=== PATIENT | female | born 1970 | race African-American/Black ===

== ENCOUNTER 2016-04-06 17:32 | Emergency (ER) | payer OTHER ==
[~2016-04-06] VITALS: Ht 167.6 cm; Wt 79.3 kg
[2016-04-06 17:44] VITALS: BP 130/80
[2016-04-07] MEDS ORDERED: DAILY VITE1 EAC1 PO (08:31)
== END 2016-04-06 20:25 | disposition left against medical advice (07) ==
LOC: EME 17:32
DX: R10.9 Unspecified abdominal pain (principal); Z53.21 Procedure and treatment not carried out due to patient leaving prior to being seen by health care provider
CPT/HCPCS: 80053; 81003; 84702; 85027

== ENCOUNTER 2016-04-07 01:40 | Inpatient (IN) | payer OTHER ==
[~2016-04-07] VITALS: Ht 167.6 cm; Wt 79.0 kg
[2016-04-07 02:26] LABS: HEMATOCRIT 28.9 % (36.0-46.0); MCH 27.5 PG (29.0-34.0); MCHC 32.9 G/DL (30.0-36.0); MCV 83.8 FL (83-99); MEAN PLAT.VOLUME 10.3 uM^3 (9.5-12.4); PLATELET COUNT 367 K/uL (156-360); RED BLOOD COUNT 3.45 M/uL (3.80-5.20); WHITE BLOOD COUNT 26.6 K/uL (4.1-10.2)
[2016-04-07 02:36] LABS: CHLORIDE 102 mEq/L (99-109); SODIUM 135 mEq/L (136-147)
[2016-04-07 02:38] LABS: GLUCOSE 89 mg/dL (70-99)
[2016-04-07 02:39] LABS: ANION GAP 11 MEQ/L (2-14)
[2016-04-07 02:40] LABS: TOTAL BILIRUBIN 1.7 mg/dL (0.0-1.0)
[2016-04-07 02:42] LABS: ALKALINE PHOSPHATASE 62 IU/L (3-129); GFR ESTIMATE (CALCULATED) > 59 mL/min/
[2016-04-07 02:43] LABS: UREA NITROGEN (BUN) 8 mg/dL (9-23)
[2016-04-07 02:44] LABS: DIRECT BILIRUBIN 0.7 mg/dL (0.0-0.3)
[2016-04-07 02:45] LABS: LIPASE 10 U/L (1.0-51.0)
[2016-04-07 02:52] LABS: QUANTITATIVE HCG 4.5 MIU/ML
[2016-04-07] MEDS ORDERED: DAILY VITE1 EAC1 PO (08:31)
[2016-04-07 09:42] LABS: ADD MIUA? YES; BILIRUBIN NEGATIVE; BLOOD TRACE; COLOR DK YELLOW ((YELLOW)); GLUCOSE (STRIP) NEGATIVE; KETONES NEGATIVE; LEUKOCYTES NEGATIVE; NITRITE NEGATIVE; PH, URINE 5.5 (5-8); PROTEIN (STRIP) TRACE; UROBILINOGEN 0.2 MG/DL (0.2-1.0)
[2016-04-07 10:00] LABS: SPECIFIC GRAVITY 1.078 (1.000-1.030)
[2016-04-07 10:13] LABS: BACTERIA NONE SEEN; CASTS NONE SEEN /LPF; CRYSTALS NONE SEEN; EPITHELIAL CELLS 1+; MUCUS NONE SEEN; RED BLOOD CELLS 0-5 /HPF (0-5); UCUL ADDED? NO; WHITE BLOOD CELLS NONE SEEN /HPF (0-5)
[2016-04-07 15:13] VITALS: BP 109/56
[2016-04-07 20:57] VITALS: BP 111/65
[2016-04-08 05:15] VITALS: BP 115/72
[2016-04-08 07:09] LABS: HEMATOCRIT 24.1 % (36.0-46.0); MCH 27.5 PG (29.0-34.0); MCHC 33.2 G/DL (30.0-36.0); MCV 82.8 FL (83-99); MEAN PLAT.VOLUME 10.5 uM^3 (9.5-12.4); PLATELET COUNT 330 K/uL (156-360); RBC DIS.WIDTH-CV 17.3 % (11.8-14.6); RBC DIS.WIDTH-SD 53.1 % (39-53); RED BLOOD COUNT 2.91 M/uL (3.80-5.20); WHITE BLOOD COUNT 23.1 K/uL (4.1-10.2)
[2016-04-08 07:22] LABS: ANION GAP 9 MEQ/L (2-14); CHLORIDE 105 MEQ/L (99-109); EOSINOPHIL (%) 0.3 % (0-5); EOSINOPHIL COUNT 0.1 K/uL (0-0.3); GFR ESTIMATE (CALCULATED) > 59 mL/min/; GLUCOSE 53 mg/dL (70-99); IMMATURE GRANULOCYTE (%) 0.9 % (0.0-0.7); IMMATURE GRANULOCYTE COUNT 0.2 K/uL; LYMPHOCYTE COUNT 0.9 K/uL (1.0-2.8); MONOCYTE (%) 1.5 % (3-12); MONOCYTE COUNT 0.4 K/uL (0-0.8); NEUTROPHIL (%) 93.5 % (45-76); NEUTROPHIL COUNT 21.6 K/uL (1.8-6.4); POTASSIUM 3.5 MEQ/L (3.7-5.4); SAMPLE HEMOLYSIS CHECK 1; SAMPLE ICTERIC CHECK 0; SAMPLE LIPEMIA CHECK 0; SODIUM 137 MEQ/L (136-147); UREA NITROGEN (BUN) 12 mg/dL (9-23)
[2016-04-08 07:26] VITALS: BP 113/61
[2016-04-08 08:13] LABS: ALKALINE PHOSPHATASE 58 IU/L (3-129); DIRECT BILIRUBIN 0.2 mg/dL (0.0-0.3); MAGNESIUM 1.4 mg/dl (1.3-2.7); TOTAL BILIRUBIN 0.8 MG/DL (0.0-1.0)
[2016-04-08 08:15] LABS: HEMATOLOGY COMMENT 1 SMEAR COMPATIBLE; USER ID CCL
[2016-04-08 11:16] VITALS: BP 116/75
[2016-04-08 15:02] VITALS: BP 133/74
[2016-04-08 19:09] VITALS: BP 129/78
[2016-04-08 23:57] VITALS: BP 131/82
[2016-04-09 03:43] VITALS: BP 125/78
[2016-04-09 03:51] LABS: C DIFF TOXIN NEGATIVE (NEGATIVE)
[2016-04-09 03:59] LABS: PROBE CHECK PASS; SPECIMEN PROCESSING CONTROL PASS
[2016-04-09 06:12] LABS: HEMATOCRIT 25.5 % (36.0-46.0); MCH 26.9 PG (29.0-34.0); MCHC 32.5 G/DL (30.0-36.0); MCV 82.8 FL (83-99); PLATELET COUNT 341 K/uL (156-360); RBC DIS.WIDTH-CV 17.1 % (11.8-14.6); RBC DIS.WIDTH-SD 51.8 % (39-53); RED BLOOD COUNT 3.08 M/uL (3.80-5.20); WHITE BLOOD COUNT 21.4 K/uL (4.1-10.2)
[2016-04-09 06:30] LABS: EOSINOPHIL (%) 0.6 % (0-5); EOSINOPHIL COUNT 0.1 K/uL (0-0.3); IMMATURE GRANULOCYTE (%) 0.5 % (0.0-0.7); IMMATURE GRANULOCYTE COUNT 0.1 K/uL; LYMPHOCYTE COUNT 0.9 K/uL (1.0-2.8); MONOCYTE (%) 4.1 % (3-12); MONOCYTE COUNT 0.9 K/uL (0-0.8); NEUTROPHIL (%) 90.6 % (45-76); NEUTROPHIL COUNT 19.4 K/uL (1.8-6.4)
[2016-04-09 06:41] LABS: ALKALINE PHOSPHATASE 57 IU/L (3-129); ANION GAP 6 MEQ/L (2-14); CHLORIDE 107 MEQ/L (99-109); GFR ESTIMATE (CALCULATED) > 59 mL/min/; POTASSIUM 3.1 MEQ/L (3.7-5.4); SAMPLE HEMOLYSIS CHECK 0; SAMPLE ICTERIC CHECK 0; SAMPLE LIPEMIA CHECK 0; SODIUM 138 MEQ/L (136-147); UREA NITROGEN (BUN) 8 mg/dL (9-23)
[2016-04-09 06:53] LABS: GLUCOSE 102 mg/dL (70-99)
[2016-04-09 06:54] LABS: TOTAL BILIRUBIN 0.5 MG/DL (0.0-1.0)
[2016-04-09 07:33] VITALS: BP 119/79
[2016-04-09 13:03] LABS: TROP-I INTERPRETATION NEGATIVE; TROPONIN-I 0.02 ng/mL (0.0-0.30)
[2016-04-09 15:49] VITALS: BP 130/80
[2016-04-10 06:20] VITALS: BP 149/85
[2016-04-10 06:54] LABS: HEMATOCRIT 25.4 % (36.0-46.0); MCH 27.1 PG (29.0-34.0); MCHC 32.3 G/DL (30.0-36.0); MCV 83.8 FL (83-99); MEAN PLAT.VOLUME 10.2 uM^3 (9.5-12.4); PLATELET COUNT 290 K/uL (156-360); RBC DIS.WIDTH-CV 17.4 % (11.8-14.6); RBC DIS.WIDTH-SD 53.3 % (39-53); RED BLOOD COUNT 3.03 M/uL (3.80-5.20)
[2016-04-10 07:11] LABS: ANION GAP 5 MEQ/L (2-14); CHLORIDE 105 MEQ/L (99-109); GFR ESTIMATE (CALCULATED) > 59 mL/min/; GLUCOSE 121 mg/dL (70-99); POTASSIUM 3.6 MEQ/L (3.7-5.4); SAMPLE HEMOLYSIS CHECK 0; SAMPLE ICTERIC CHECK 0; SAMPLE LIPEMIA CHECK 0; SODIUM 135 MEQ/L (136-147); UREA NITROGEN (BUN) 4 mg/dL (9-23)
[2016-04-10 07:34] LABS: INTER. NORMALIZED RATIO 1.1; PROTHROMBIN TIME 11.7 (9.2-11.2); PTT 32.8 (25-32)
[2016-04-10 07:51] LABS: BASOPHIL COUNT 0.1 K/uL (0-0.1); EOSINOPHIL (%) 1.2 % (0-5); EOSINOPHIL COUNT 0.2 K/uL (0-0.3); HEMATOLOGY COMMENT 1 SMEAR COMPATIBLE; IMMATURE GRANULOCYTE (%) 0.8 % (0.0-0.7); IMMATURE GRANULOCYTE COUNT 0.1 K/uL; LYMPHOCYTE COUNT 1.1 K/uL (1.0-2.8); MONOCYTE (%) 11.9 % (3-12); MONOCYTE COUNT 2.2 K/uL (0-0.8); NEUTROPHIL (%) 79.8 % (45-76); NEUTROPHIL COUNT 14.4 K/uL (1.8-6.4); PLAT.SUFFICIENCY ADEQUATE; USER ID TLW
[2016-04-10 08:24] VITALS: BP 135/85
[2016-04-10 09:59] LABS: TROP-I INTERPRETATION NEGATIVE; TROPONIN-I 0.01 ng/mL (0.0-0.30)
[2016-04-10 10:26] LABS: HBSG INDEX 0.26; HPCA INDEX 0.09
[2016-04-10 11:49] VITALS: BP 143/91
[2016-04-10 12:55] LABS: HIV-1/2 AB/AG COMBO Nonreactive
[2016-04-10 13:13] LABS: TREPONEMA ANTIBODY NEGATIVE (NEGATIVE)
[2016-04-10 13:27] LABS: CHLAMYDIA TRACHOMATIS NEGATIVE; NEISSERIA GONORRHOEAE POSITIVE
[2016-04-10 14:19] LABS: QUANTITATIVE HCG < 4.0 MIU/ML
[2016-04-10 16:55] LABS: POINT-OF-CARE METER ID UU13113717
[2016-04-10 19:19] VITALS: BP 148/79
[2016-04-10 22:55] LABS: CANDIDA DNA PROBE NEGATIVE; GARDNERELLA DNA PROBE NEGATIVE; INTERNAL CONTROL VALID? YES
[2016-04-11 00:19] VITALS: BP 135/79
[2016-04-11 04:00] VITALS: BP 130/89
[2016-04-11 05:31] LABS: HEMATOCRIT 25.8 % (36.0-46.0); MCH 26.6 PG (29.0-34.0); MCHC 32.6 G/DL (30.0-36.0); MCV 81.6 FL (83-99); PLATELET COUNT 323 K/uL (156-360); RBC DIS.WIDTH-CV 17.1 % (11.8-14.6); RBC DIS.WIDTH-SD 51.8 % (39-53); RED BLOOD COUNT 3.16 M/uL (3.80-5.20); WHITE BLOOD COUNT 16.3 K/uL (4.1-10.2)
[2016-04-11 05:33] LABS: EOSINOPHIL (%) 0.6 % (0-5); EOSINOPHIL COUNT 0.1 K/uL (0-0.3); IMMATURE GRANULOCYTE (%) 1.3 % (0.0-0.7); IMMATURE GRANULOCYTE COUNT 0.2 K/uL; LYMPHOCYTE COUNT 1.1 K/uL (1.0-2.8); MONOCYTE (%) 12.3 % (3-12); NEUTROPHIL (%) 78.8 % (45-76); NEUTROPHIL COUNT 12.8 K/uL (1.8-6.4)
[2016-04-11 05:56] LABS: ANION GAP 6 MEQ/L (2-14); CHLORIDE 105 MEQ/L (99-109); GFR ESTIMATE (CALCULATED) > 59 mL/min/; GLUCOSE 95 mg/dL (70-99); POTASSIUM 3.7 MEQ/L (3.7-5.4); SAMPLE HEMOLYSIS CHECK 0; SAMPLE ICTERIC CHECK 0; SAMPLE LIPEMIA CHECK 0; SODIUM 137 MEQ/L (136-147); UREA NITROGEN (BUN) 4 mg/dL (9-23)
[2016-04-11 08:23] VITALS: BP 142/74
[2016-04-11 09:00] LABS: HEMATOLOGY COMMENT 1 SMEAR COMPATIBLE; USER ID MCB
[2016-04-11 17:11] VITALS: BP 130/78
[2016-04-11 23:20] VITALS: BP 144/81
[2016-04-12 07:35] VITALS: BP 136/62
[2016-04-12 15:57] VITALS: BP 157/81
[2016-04-12 20:28] VITALS: BP 140/77
[2016-04-13 00:15] VITALS: BP 140/74
[2016-04-13 05:35] LABS: HEMATOCRIT 24.4 % (36.0-46.0); MCH 27.2 PG (29.0-34.0); MCHC 33.6 G/DL (30.0-36.0); MCV 81.1 FL (83-99); MEAN PLAT.VOLUME 10.1 uM^3 (9.5-12.4); NRBC (%) 0.4 /100 WBC (0-0); PLATELET COUNT 395 K/uL (156-360); RBC DIS.WIDTH-CV 17.1 % (11.8-14.6); RBC DIS.WIDTH-SD 50.4 % (39-53); RED BLOOD COUNT 3.01 M/uL (3.80-5.20); WHITE BLOOD COUNT 15.4 K/uL (4.1-10.2)
[2016-04-13 06:01] LABS: ANION GAP 8 MEQ/L (2-14); CHLORIDE 104 MEQ/L (99-109); GFR ESTIMATE (CALCULATED) > 59 mL/min/; GLUCOSE 115 mg/dL (70-99); SAMPLE HEMOLYSIS CHECK 0; SAMPLE ICTERIC CHECK 0; SAMPLE LIPEMIA CHECK 0; SODIUM 139 MEQ/L (136-147); UREA NITROGEN (BUN) 3 mg/dL (9-23)
[2016-04-13 06:35] LABS: ANISOCYTOSIS 1+; HEMATOLOGY COMMENT 1 REV; MACROCYTES 1+; MICROCYTOSIS FEW; OVALOCYTES 1+
[2016-04-13 06:36] LABS: BASOPHIL COUNT 0.2 K/uL (0-0.1); EOSINOPHIL (%) 1.4 % (0-5); EOSINOPHIL COUNT 0.2 K/uL (0-0.3); IMMATURE GRANULOCYTE (%) 3.5 % (0.0-0.7); IMMATURE GRANULOCYTE COUNT 0.5 K/uL; LYMPHOCYTE COUNT 2.6 K/uL (1.0-2.8); MONOCYTE (%) 11.5 % (3-12); MONOCYTE COUNT 1.8 K/uL (0-0.8); NEUTROPHIL COUNT 10.2 K/uL (1.8-6.4)
[2016-04-13 07:26] VITALS: BP 141/76
[2016-04-13 16:05] VITALS: BP 146/83
[2016-04-13 23:57] VITALS: BP 152/87
[2016-04-14 06:13] LABS: HEMATOCRIT 23.6 % (36.0-46.0); MCH 27.2 PG (29.0-34.0); MCHC 33.5 G/DL (30.0-36.0); MCV 81.4 FL (83-99); MEAN PLAT.VOLUME 10.1 uM^3 (9.5-12.4); NRBC (%) 0.4 /100 WBC (0-0); PLATELET COUNT 422 K/uL (156-360); RBC DIS.WIDTH-CV 17.4 % (11.8-14.6); RBC DIS.WIDTH-SD 50.9 % (39-53); WHITE BLOOD COUNT 17.5 K/uL (4.1-10.2)
[2016-04-14 06:44] LABS: ALKALINE PHOSPHATASE 47 IU/L (3-129); ANION GAP 6 MEQ/L (2-14); CHLORIDE 104 MEQ/L (99-109); GFR ESTIMATE (CALCULATED) > 59 mL/min/; GLUCOSE 126 mg/dL (70-99); POTASSIUM 3.3 MEQ/L (3.7-5.4); SAMPLE HEMOLYSIS CHECK 0; SAMPLE ICTERIC CHECK 0; SAMPLE LIPEMIA CHECK 0; SODIUM 137 MEQ/L (136-147); UREA NITROGEN (BUN) 2 mg/dL (9-23)
[2016-04-14 06:48] LABS: TOTAL BILIRUBIN 0.3 MG/DL (0.0-1.0)
[2016-04-14 07:43] VITALS: BP 134/76
[2016-04-14 08:37] LABS: BASOPHIL COUNT 0.1 K/uL (0-0.1); EOSINOPHIL (%) 1.4 % (0-5); EOSINOPHIL COUNT 0.2 K/uL (0-0.3); HEMATOLOGY COMMENT 1 SMEAR COMPATIBLE; IMMATURE GRANULOCYTE (%) 2.5 % (0.0-0.7); IMMATURE GRANULOCYTE COUNT 0.4 K/uL; MONOCYTE COUNT 1.4 K/uL (0-0.8); NEUTROPHIL (%) 76.4 % (45-76); NEUTROPHIL COUNT 13.4 K/uL (1.8-6.4); USER ID STC
[2016-04-14 11:34] VITALS: BP 150/80
[2016-04-14 20:00] VITALS: BP 142/85
[2016-04-15] VITALS: BP 136/72
[2016-04-15 04:00] VITALS: BP 137/68
[2016-04-15 07:48] VITALS: BP 152/80
[2016-04-15 16:24] LABS: HEMATOCRIT 21.9 % (36.0-46.0); MCH 27.3 PG (29.0-34.0); MCHC 33.8 G/DL (30.0-36.0); MCV 80.8 FL (83-99); MEAN PLAT.VOLUME 9.9 uM^3 (9.5-12.4); PLATELET COUNT 439 K/uL (156-360); RBC DIS.WIDTH-CV 17.8 % (11.8-14.6); RBC DIS.WIDTH-SD 51.4 % (39-53); RED BLOOD COUNT 2.71 M/uL (3.80-5.20); WHITE BLOOD COUNT 17.3 K/uL (4.1-10.2)
[2016-04-15 17:04] LABS: ALKALINE PHOSPHATASE 51 IU/L (3-129); ANION GAP 8 MEQ/L (2-14); CHLORIDE 104 MEQ/L (99-109); GFR ESTIMATE (CALCULATED) > 59 mL/min/; GLUCOSE 95 mg/dL (70-99); POTASSIUM 3.9 MEQ/L (3.7-5.4); SAMPLE HEMOLYSIS CHECK 0; SAMPLE ICTERIC CHECK 0; SAMPLE LIPEMIA CHECK 0; SODIUM 138 MEQ/L (136-147); TOTAL BILIRUBIN 0.3 MG/DL (0.0-1.0); UREA NITROGEN (BUN) 2 mg/dL (9-23)
[2016-04-15 17:24] VITALS: BP 153/84
[2016-04-16] VITALS (9 sets, daily range): BP systolic 119–160; BP diastolic 67–82
[2016-04-17 00:20] VITALS: BP 133/68
[2016-04-17 08:00] VITALS: BP 136/74
[2016-04-17 15:52] VITALS: BP 117/67
[2016-04-17] MEDS ORDERED: CEFTRIAXONE2 G1 IM (17:42)
[2016-04-17] MEDS ORDERED: METRONIDAZOLE500 MG PO (17:42)
[2016-04-17] MEDS ORDERED: BENTYL20 MG PO (17:43)
[2016-04-17] MEDS ORDERED: Tylenol Extra Streng PO (17:44)
[2016-04-17] MEDS ORDERED: FAMOTIDINE20 MG PO (17:44)
[2016-04-17] MEDS ORDERED: K-DUR20 MEQ PO (17:44)
[2016-04-17] MEDS ORDERED: ENDOCET 5-3251 EACH PO (17:45)
== END 2016-04-17 19:43 | disposition home or self-care (01) | DRG 389 ==
LOC: EME 01:40 → EXP 01:40 → EDOF 06:04 → 5WEST 06:04 → EDOF 06:04 → 5WEST 15:08 → 3EAST 04-08 11:16 → 5WEST 04-08 11:16 → 3EAST 04-08 23:46
PROVIDERS: Family Medicine; Family Medicine Sports Medicine; Hospitalist; Internal Medicine Gastroenterology; Internal Medicine Infectious Disease; Obstetrics & Gynecology; Physician Assistant; Radiology Diagnostic Radiology
PROC: 0D9W30Z Drainage of Peritoneum with Drainage Device, Percutaneous Approach (ICD-10-PCS; principal; 2016-04-10)
PROC: 0D9W3ZZ Drainage of Peritoneum, Percutaneous Approach (ICD-10-PCS; 2016-04-14)
DX: K56.0 Paralytic ileus (principal); A54.85 Gonococcal peritonitis; A54.24 Gonococcal female pelvic inflammatory disease; R18.8 Other ascites; J98.11 Atelectasis; J90 Pleural effusion, not elsewhere classified; N73.0 Acute parametritis and pelvic cellulitis; K56.60 Unspecified intestinal obstruction; A08.4 Viral intestinal infection, unspecified; E87.6 Hypokalemia; E83.42 Hypomagnesemia; D50.9 Iron deficiency anemia, unspecified; F17.210 Nicotine dependence, cigarettes, uncomplicated; N92.0 Excessive and frequent menstruation with regular cycle; N83.02 Follicular cyst of left ovary; R16.0 Hepatomegaly, not elsewhere classified; R07.89 Other chest pain; Z80.42 Family history of malignant neoplasm of prostate
CPT/HCPCS: 49406; 74020; 74177; 76856; 76937; 80048; 80053; 80076; 81003; 82248; 82948; 83605; 83690; 83735; 84484; 84702; 85025; 85027; 85610; 85730; 86140; 86703; 86780; 86803; 86850; 86900; 86901; 86920; 87070; 87075; 87086; 87177; 87205; 87329; 87340; 87480; 87491; 87493; 87506; 87510; 87591; 87660; 93005; 94799; 99281; 99285; C1769; C1894; G0378; J0696; J1170; J1650; J2250; J2270; J2310; J2405; J3010; J3475; J3480; J7030; J7040; J7050; P9016; S0028; S0030

== ENCOUNTER 2017-05-16 06:51 | Emergency (ER) | payer SELFPAY ==
[~2017-05-16] VITALS: Ht 162.6 cm; Wt 78.1 kg
[~2017-05-16 06:51] MED LIST: BENTYL20 MG PO; CEFTRIAXONE2 G1 IM; DAILY VITE1 EAC1 PO; ENDOCET 5-3251 EACH PO; FAMOTIDINE20 MG PO; K-DUR20 MEQ PO; METRONIDAZOLE500 MG PO; Tylenol Extra Streng PO
[2017-05-16] MEDS ORDERED: MOTRIN800 MG PO (10:50)
[2017-05-16] MEDS ORDERED: PERCOCET 5/31 TABLET PO (10:50)
[2017-05-16 11:05] VITALS: BP 123/72
== END 2017-05-16 11:06 | disposition home or self-care (01) ==
LOC: EME 06:51
DX: M75.92 Shoulder lesion, unspecified, left shoulder (principal); F17.200 Nicotine dependence, unspecified, uncomplicated; Z82.61 Family history of arthritis
CPT/HCPCS: 71045; 73030; 99281; 99284

== ENCOUNTER 2017-10-26 02:32 | Emergency (ER) | payer OTHER ==
[~2017-10-26] VITALS: Ht 167.6 cm; Wt 75.6 kg
[~2017-10-26 02:32] MED LIST changes: +MOTRIN800 MG PO; +PERCOCET 5/31 TABLET PO
[2017-10-26 02:51] LABS: HEMATOCRIT 32.5 % (36.0-46.0); HEMOGLOBIN 10.6 G/DL (11.9-15.5); MCHC 32.6 G/DL (30.0-36.0); PLATELET COUNT 369 K/uL (156-360); RBC DIS.WIDTH-CV 15.2 % (11.8-14.6); RBC DIS.WIDTH-SD 50.1 % (39-53); RED BLOOD COUNT 3.65 M/uL (3.80-5.20); WHITE BLOOD COUNT 9.4 K/uL (4.1-10.2)
[2017-10-26 02:58] LABS: ALBUMIN 4.1 g/dL (3.2-4.8); CHLORIDE 104 mEq/L (99-109); POTASSIUM 3.4 mEq/L (3.7-5.4); SODIUM 138 mEq/L (136-147)
[2017-10-26 03:01] LABS: GLUCOSE 105 mg/dL (70-99); TOTAL PROTEIN 7.8 g/dL (6.4-8.3)
[2017-10-26 03:02] LABS: TOTAL BILIRUBIN 0.7 mg/dL (0.0-1.0)
[2017-10-26 03:04] LABS: ALKALINE PHOSPHATASE 57 IU/L (3-129); CREATININE 0.8 mg/dL (0.6-1.3); GFR ESTIMATE (CALCULATED) > 59 mL/min/
[2017-10-26 03:05] LABS: UREA NITROGEN (BUN) 6 mg/dL (9-23)
[2017-10-26 03:06] LABS: AST (GOT) 17 IU/L (2-34)
[2017-10-26 03:07] LABS: ALT (GPT) 11 IU/L (3-49)
[2017-10-26 03:08] LABS: LIPASE 26 U/L (1.0-51.0)
[2017-10-26 03:13] LABS: QUANTITATIVE HCG 7.4 MIU/ML
[2017-10-26 03:59] LABS: APPEARANCE CLEAR ((CLEAR)); BILIRUBIN NEGATIVE; BLOOD SMALL; COLOR STRAW ((YELLOW)); GLUCOSE (STRIP) NEGATIVE; KETONES NEGATIVE; LEUKOCYTES NEGATIVE; NITRITE NEGATIVE; PROTEIN (STRIP) NEGATIVE; SPECIFIC GRAVITY 1.006 (1.000-1.030); UROBILINOGEN 0.2 MG/DL (0.2-1.0)
[2017-10-26 04:04] LABS: BACTERIA NONE SEEN /HPF; EPITHELIAL CELLS 1+ /HPF; MUCUS NONE SEEN /LPF; RED BLOOD CELLS 0-5 /HPF (0-5); UCUL ADDED? NO; WHITE BLOOD CELLS 0-5 /HPF (0-5)
[2017-10-26] MEDS ORDERED: ZOFRAN4 MG PO (04:42)
[2017-10-26 05:55] VITALS: BP 142/88
== END 2017-10-26 05:56 | disposition home or self-care (01) ==
LOC: EME 02:32
PROVIDERS: Emergency Medicine
DX: R11.2 Nausea with vomiting, unspecified (principal); F17.200 Nicotine dependence, unspecified, uncomplicated; Z90.49 Acquired absence of other specified parts of digestive tract
CPT/HCPCS: 80053; 81003; 83690; 84702; 85027; 99281; 99284; J2405; J7030